=== PATIENT | female | born 1935 | race Caucasian/White ===

== ENCOUNTER → 2021-08-21 | Outpatient (CLI) | payer MEDICARE ==
[~2021-08-21] MED LIST: ACETAMINOPHEN PO; ALLER-CHLOR4 MG PO; ARTIFICIAL TEAR1510; BUSPIRONE HCL10 MG PO; CALCIUM + D3 E1 EACH PO; ENSURE ENLIVE237 ML PO; FLONASE 0.05%50 MCG; FUROSEMIDE 20 M20 MG PO; GAS RELIEF125 M1 PO; IPRAT-ALBUT 0.5-3 ML INH; LOVASTATIN 20 M20 MG PO; MAGNESIUM CITR100 MG PO; MUCINEX600 MG PO; OFLOXACIN5 M1 LT. EAR; OMEGA-3 FLAXS1000 MG PO; PROAIR HFA8.5 GM INH; TIZANIDINE HCL 22 M1 PO; TRELEGY ELLIPT1 EACH PO; ULTRAM 50MG TAB50 MG PO; VITAMIN C1000 MG PO; ZAROXOLYN 5MG TA5 MG PO
== END | disposition home or self-care (01) ==
LOC: M.PC 09:27
PROVIDERS: ATTEND Physical Medicine & Rehabilitation
DX: M25.511 Pain in right shoulder (principal); M19.011 Primary osteoarthritis, right shoulder; M54.59 Other low back pain; M51.16 Intervertebral disc disorders with radiculopathy, lumbar region; N18.9 Chronic kidney disease, unspecified; K21.9 Gastro-esophageal reflux disease without esophagitis; F41.9 Anxiety disorder, unspecified; Z98.890 Other specified postprocedural states; Z79.899 Other long term (current) drug therapy; Z85.3 Personal history of malignant neoplasm of breast; Z88.2 Allergy status to sulfonamides; Z88.8 Allergy status to other drugs, medicaments and biological substances